=== PATIENT | female | born 1960 | race Caucasian/White ===

== ENCOUNTER 2017-11-18 08:03 | Day surgery (SDC) | payer BC ==
[2017-11-13 18:01] VITALS: BMI 40.7
[2017-11-18 08:31] VITALS: RESP 18; TEMP 98
[2017-11-18] MEDS: LACTATED RINGERS 1,000 ML IV SCH ×2 (08:43→08:46)
[2017-11-18] MEDS ORDERED: LIDOCAINE 1% 20 ML VIAL (10MG/ML) FOR IV START INTRADERMA ONE (08:44)
[2017-11-18] MEDS ORDERED: MIDAZOLAM 2 MG/2 ML VIAL ONE ×2 (08:51→09:38)
[2017-11-18] MEDS ORDERED: PROPOFOL 10 MG/ML 20 ML VIAL IV ONE ×2 (08:51→09:38)
[2017-11-18] MEDS ORDERED: fentaNYL (PF) 50 MCG/ML 2 ML AMP ONE (08:51)
[2017-11-18] MEDS ORDERED: LIDOCAINE 1% INJ 10MG/ML (20 ML MDV) ONE ×2 (08:51→09:38)
--- NOTE | 2017-11-18 09:36 | P.PCN ---
Date of Procedure: 11/18/17 Procedure(s) Performed: Procedure: Total colonoscopy. Preoperative diagnosis: Screening for neoplasia. Postoperative diagnosis: Diffuse diverticulosis with no evidence of acute diverticulitis, strictures, polyps or cancer. Preparation: HalfLytely prep. Sedation: Was provided by anesthesia. Brief clinical history: The patient is a 57-year-old female who is scheduled for this evaluation for screening for neoplasia. She has no abdominal complaints, bleeding or anemia or family history of colon cancer. Procedure: With the patient on her left lateral decubitus position and after informed consent and adequate sedation, the perianal area was inspected and it did not show any fissures or fistulas. There were no masses felt on digital rectal examination. The Olympus CFQ 160L video colonoscope was then inserted in the rectum in the usual fashion and advanced to the cecum. There was significant diverticular disease involving the full length of the bowel wall including the right side with no evidence of acute diverticulitis or strictures. The mucosa appeared healthy. No polyps or tumors were seen. I retroflexed the endoscope in the rectum before the endoscope was withdrawn. The patient tolerated. Plan: The patient was reassured. Discussed dietary measures. She will follow- up with you as planned and I recommended repeat exam in 10 years.
[2017-11-18 10:03] VITALS: BP 156/92; PULSE 63
== END 2017-11-18 10:53 | disposition home or self-care (01) ==
LOC: ORWHC2ENDO 08:03
DX: Z12.11 Encounter for screening for malignant neoplasm of colon (principal); K57.30 Diverticulosis of large intestine without perforation or abscess without bleeding; E07.9 Disorder of thyroid, unspecified; G43.909 Migraine, unspecified, not intractable, without status migrainosus
CPT/HCPCS: J2250; J2001; J3010; J2704; G0121

== ENCOUNTER → 2018-08-25 | Outpatient (CLI) | payer OTHER ==
--- NOTE | 2018-08-25 14:55 | XR ---
EXAMINATION TYPE: XR foot complete LT DATE OF EXAM: 08/25/2018 COMPARISON: 03/31/2015 HISTORY: Contusion left foot third metatarsal region history object fell on foot TECHNIQUE: Three-view left foot FINDINGS: Metatarsal tarsal alignment appears normal. No acute fractures are evident. Joint spaces ar e preserved. Plantar calcaneal heel spur is present. There is likely some soft tissue swelling over t he distal forefoot. Follow-up examination would be recommended 7-10 days from acute trauma for continued pain. IMPRESSION: 1. No acute fracture left foot. 2. Plantar calcaneal heel spur. 3. Soft tissue swelling distal dorsal foot
== END ==
LOC: RADXRMAIN 14:22
PROVIDERS: ATTEND Emergency Medicine
DX: M77.32 Calcaneal spur, left foot (principal); S90.32XA Contusion of left foot, initial encounter

== ENCOUNTER → 2018-09-07 | Outpatient (CLI) | payer OTHER ==
--- NOTE | 2018-09-07 12:41 | XR ---
EXAMINATION TYPE: XR foot complete LT DATE OF EXAM: 09/07/2018 COMPARISON: 08/25/2018 HISTORY: Pain TECHNIQUE: Three views are submitted. FINDINGS: The osseous structures are intact. There is no acute fracture or dislocation. Hypertrophic change and arthropathy first is cortical thickening involving the second through fourth metatarsals. Large p lantar calcaneal spur noted. IMPRESSION: 1. Cortical thickening involving the second through fourth metatarsals without evidence of overt frac ture line. Recommend bone scan to assess for occult fracture.
== END | disposition home or self-care (01) ==
LOC: RADXRMAIN 12:09
PROVIDERS: ATTEND Emergency Medicine
DX: M89.372 Hypertrophy of bone, left ankle and foot (principal)

== ENCOUNTER → 2018-09-18 | Outpatient (CLI) | payer OTHER ==
--- NOTE | 2018-09-21 03:00 | MR ---
EXAMINATION TYPE: MR foot LT wo con DATE OF EXAM: 09/18/2018 COMPARISON: None HISTORY: Left foot pain Standard multiplanar, multisequence MRI departmental protocol Multiplanar, multisequence images of the left foot were acquired. FINDINGS: The metatarsals are intact. Intertarsal joint spaces are fairly normal. There is soft tissu e swelling and skin thickening on the dorsum of the forefoot. MP joint spaces are fairly normal. I se e no bony destructive process. The medial and lateral flexor tendons of the ankle appear intact. Exte nsor tendons appear intact. Ankle mortise is anatomic. The collateral ligaments are intact. There is mild subcutaneous edema around the lower leg. Plantar fascia appears intact. No evidence of ligament or tendon tear. IMPRESSION: No evidence of a fracture. Forefoot soft tissue swelling. Mild subcutaneous edema.
== END | disposition home or self-care (01) ==
LOC: RADMRIMAIN 18:03
PROVIDERS: ATTEND Emergency Medicine
DX: M79.89 Other specified soft tissue disorders (principal); R60.0 Localized edema

== ENCOUNTER 2022-05-03 13:59 | Emergency (ER) | payer BC ==
[2022-05-03] MEDS ORDERED: SUMAtriptan succinate 6 MG/0.5 ML VIAL SQ STA (14:36)
--- NOTE | 2022-05-03 14:43 | ED ---
ENT HPI - General Chief complaint: ENT Stated complaint: nose bleed Time Seen by Provider: 05/03/22 14:27 Source: patient, family, RN notes reviewed, old records reviewed Mode of arrival: ambulatory Limitations: no limitations - History of Present Illness Initial comments: This is a 61-year-old female that presents to the emergency room with family complaining of intermittent epistaxis from the left since last night. Patient states that she's also developed a left-sided temporal pulsating headache. She does have a history of migraine headaches but this feels different and she has never had one on the left side. She states she does take Imitrex normally but did not take it today. She states that she is also having bleeding from the left tear duct. They did go to urgent care and recommended come to the emergency room. MD complaint: epistaxis, other (bleeding from left tear duct) -: days(s) (2) Location: nose Severity scale (1-10): 2 Consistency: intermittent Improves with: pressure Associated Symptoms: other (left temporal headache) - Related Data Home Medications Medication Instructions Recorded Confirmed Aspirin/Acetaminophen/Caffeine 3 tab PO DIRECTED PRN 11/13/17 02/02/20 [Excedrin Migraine Caplet] Levothyroxine Sodium [Synthroid] 100 mcg PO DAILY 11/13/17 02/02/20 Multivitamins, Thera [Multivitamin 1 tab PO DAILY 11/13/17 02/02/20 (formulary)] Vit C/E/Zn/Coppr/Lutein/Zeaxan 1 each PO DAILY 11/13/17 02/02/20 [Preservision Areds 2 Softgel] Calcium Carbonate/Vitamin D3 1 each PO TUFR 01/31/20 02/02/20 [Calcium 600-Vit D3 800 Caplet] Previous Rx's Medication Instructions Recorded Docusate [Colace] 100 mg PO BID #20 capsule 02/02/20 HYDROcodone/APAP 5-325MG [[place] 1 tab PO Q6HR PRN #10 tab 02/02/20 5-325] amLODIPine [Norvasc] 5 mg PO DAILY 30 Days #30 tab 05/03/22 Allergies Allergy/AdvReac Type Severity Reaction Status Date / Time No Known Allergies Allergy Verified 05/03/22 14:04 Review of Systems ROS Statement: Those systems with pertinent positive or pertinent negative responses have been documented in the HPI. ROS Other: All systems not noted in ROS Statement are negative. Past Medical History Past Medical History: Thyroid Disorder Additional Past Medical History / Comment(s): Hx Migraines. Varicose veins. Current gallstones. History of Any Multi-Drug Resistant Organisms: None Reported Past Surgical History: Hysterectomy, Orthopedic Surgery Additional Past Surgical History / Comment(s): LT KNEE SCOPE. NEUROFIBROMA EXC LT ANKLE X2, HAS SEVERED NERVE. RT THYROIDECTOMY. PARTIAL HYSTERECTOMY. COLONOSCOPY. Past Anesthesia/Blood Transfusion Reactions: Postoperative Nausea & Vomiting (PONV) Smoking Status: Never smoker Past Alcohol Use History: None Reported Past Drug Use History: None Reported - Past Family History Mother Family Medical History: No Reported History General Exam Limitations: no limitations General appearance: alert, in no apparent distress Head exam: Present: atraumatic Eye exam: Present: PERRL, EOMI, other (dried blood around left eye). Absent: scleral icterus, conjunctival injection, periorbital swelling Pupils: Present: normal accommodation ENT exam: Present: normal oropharynx, mucous membranes moist Expanded Mouth exam: Present: tongue normal, tongue elevation. Absent: drooling, trismus, muffled voice Throat exam: other (Bleeding from left nostril, clots expelled no further bleeding). negative: tonsillar erythema, tonsillar exudate, R peritonsillar mass, L peritonsillar mass Neck exam: Present: full ROM. Absent: tenderness, meningismus, lymphadenopathy Respiratory exam: Absent: respiratory distress, accessory muscle use Cardiovascular Exam: Present: regular rate GI/Abdominal exam: Present: soft. Absent: tenderness Neurological exam: Present: alert, oriented X3, normal gait Psychiatric exam: Present: normal affect, normal mood, anxious Skin exam: Present: warm, dry, normal color. Absent: cyanosis, diaphoretic, pallor Course Vital Signs 05/03/22 05/03/22 05/03/22 14:02 15:58 16:24 Temperature 98.5 F 98.2 F Pulse Rate 80 72 75 Respiratory 20 18 18 Rate Blood Pressure 169/107 181/113 164/99 O2 Sat by Pulse 99 98 98 Oximetry Medical Decision Making - Medical Decision Making Patient was able to blow and expelled large clots from left nostril. Bleeding is now controlled. No evidence of bleeding from the left tear duct. Labs are within normal limits. Patient has had no further bleeding. She was given her Imitrex for her headache with improvement. CT interpreted by me shows a maxillary sinus clots. Radiologist impression acute bilateral maxillary sinusitis with possible hemorrhage within the left maxillary sinus. Patient was advised of the results and explained that bleeding may recur. Strict instructions were provided for epistaxis. She was given a nasal clamp. Blood pressure in the emergency room with elevated. She was given hydralazine with improvement. I did discuss hypertensive management with the patient and she is agreeable to taking Norvasc 5 mg daily as previous records also indicate that she has been hypertensive. She states that she does have an appointment with her primary care doctor in June and was advised to discuss her blood pressure with him. She'll be monitoring her blood pressure at home with her own monitor. She is agreeable to this plan of care. Case discussed with Dr. Lay - Lab Data Result diagrams: 05/03/22 14:40 05/03/22 14:40 Lab Results 05/03/22 05/03/22 05/03/22 Range/Units 14:40 14:40 14:40 WBC 6.7 (3.8-10.6) k/uL RBC 4.72 (3.80-5.40) m/uL Hgb 13.7 (11.4-16.0) gm/dL Hct 41.0 (34.0-46.0) % MCV 86.8 (80.0-100.0) fL MCH 29.0 (25.0-35.0) pg MCHC 33.4 (31.0-37.0) g/dL RDW 13.1 (11.5-15.5) % Plt Count 300 (150-450) k/uL MPV 8.0 Neutrophils % 61 % Lymphocytes % 27 % Monocytes % 5 % Eosinophils % 4 % Basophils % 1 % Neutrophils # 4.1 (1.3-7.7) k/uL Lymphocytes # 1.8 (1.0-4.8) k/uL Monocytes # 0.3 (0-1.0) k/uL Eosinophils # 0.3 (0-0.7) k/uL Basophils # 0.1 (0-0.2) k/uL PT 10.1 (9.0-12.0) sec INR 0.9 (<1.2) Sodium 139 (137-145) mmol/L Potassium 3.7 (3.5-5.1) mmol/L Chloride 109 H (98-107) mmol/L Carbon Dioxide 25 (22-30) mmol/L Anion Gap 5 mmol/L BUN 10 (7-17) mg/dL Creatinine 0.60 (0.52-1.04) mg/dL Est GFR (CKD-EPI)AfAm >90 (>60 ml/min/1.73 sqM) Est GFR (CKD-EPI)NonAf >90 (>60 ml/min/1.73 sqM) Glucose 102 H (74-99) mg/dL Calcium 8.6 (8.4-10.2) mg/dL Disposition Clinical Impression: Epistaxis Disposition: HOME SELF-CARE Condition: Good Instructions (If sedation given, give patient instructions): Nosebleed (ED) Additional Instructions: If rebleeding occurs blow your nose to expel any clots and then hold pressure for 15 minutes. Reassess. If there is persistent bleeding return to the emergency room. You can use Afrin nasal spray as directed. You can also place a thin layer of Neosporin or Vaseline inside your nose for moisture. Follow-up with ENT as needed. Prescriptions: amLODIPine [Norvasc] 5 mg PO DAILY 30 Days #30 tab Is patient prescribed a controlled substance at d/c from ED?: No Referrals: Alireza Allison DO [Primary Care Provider] - 1-2 days Adolfo Askew MD [STAFF PHYSICIAN] - 1-2 days Time of Disposition: 15:37
[2022-05-03] MEDS ORDERED: SUMAtriptan succinate 25 MG TAB PO STA (14:46)
[2022-05-03 14:54] LABS: Basophils # (A) 0.1 k/uL (0-0.2); Basophils % (A) 1 %; Eosinophils # (A) 0.3 k/uL (0-0.7); Eosinophils % (A) 4 %; HGB 13.7 gm/dL (11.4-16.0); Lymphocytes # (A) 1.8 k/uL (1.0-4.8); Lymphocytes % (A) 27 %; MCHC 33.4 g/dL (31.0-37.0); MCV 86.8 fL (80.0-100.0); Monocytes # (A) 0.3 k/uL (0-1.0); Monocytes % (A) 5 %; Neutrophils # (A) 4.1 k/uL (1.3-7.7); Neutrophils % (A) 61 %; Platelet Count 300 k/uL (150-450); RBC 4.72 m/uL (3.80-5.40); RDW 13.1 % (11.5-15.5); WBC 6.7 k/uL (3.8-10.6)
[2022-05-03 15:05] LABS: INR 0.9 (<1.2); Prothrombin Time 10.1 sec (9.0-12.0)
[2022-05-03 15:10] LABS: African American GFR (CKD) >90 (>60 ml/min/1.73 sqM); Anion Gap 5 mmol/L; Blood Urea Nitrogen 10 mg/dL (7-17); Calcium 8.6 mg/dL (8.4-10.2); Carbon Dioxide 25 mmol/L (22-30); Chloride 109 mmol/L (98-107); Glucose 102 mg/dL (74-99); Non-African American GFR(CKD) >90 (>60 ml/min/1.73 sqM); Potassium 3.7 mmol/L (3.5-5.1); Sodium 139 mmol/L (137-145)
--- NOTE | 2022-05-03 15:18 | CT ---
EXAMINATION TYPE: CT brain wo con DATE OF EXAM: 05/03/2022 COMPARISON: None HISTORY: Headache and nose bleed. CT DLP: 1252.4 mGycm Automated exposure control for dose reduction was used. FINDINGS: The ventricles, basal cisterns and sulci over the convexities are within normal limits and there is n o mass effect or shift of the midline structures. No abnormal density is seen throughout the brain parenchyma and there is no acute intra or extra-axia l hemorrhage. The posterior fossa including the brainstem, fourth ventricle and cerebellar pontine angles appear gr ossly normal. The. Intraorbital contents appear normal and symmetric. There are air-fluid levels in the maxillary sinuses bilaterally and there is a fluid /fluid level in the left maxillary sinus with high density and low density fluid which could indicate hemorrhage or i nspissated mucus/fluid. The frontal sinuses are hypoplastic. The sphenoid sinus and mastoid air cells are well aerated IMPRESSION: Acute bilateral maxillary sinusitis with possible hemorrhage within the left maxillary sinus, see marcela larson. IMPRESSION:
[2022-05-03] MEDS ORDERED: OXYMETAZOLINE 0.05% NASL SPRAY 1 SPRAY BOTTLE NASAL STA (15:35)
[2022-05-03] MEDS ORDERED: hydrALAZINE HCL 20 MG/ML 1 ML VIAL IVP STA (15:57)
[2022-05-03 15:58] VITALS: RESP 18
[2022-05-03 16:31] VITALS: BP 164/99; PULSE 75; TEMP 98.2
== END 2022-05-03 16:32 | disposition home or self-care (01) ==
LOC: EC 13:59
DX: R04.0 Epistaxis (principal); E07.9 Disorder of thyroid, unspecified; Z79.82 Long term (current) use of aspirin; Z79.890 Hormone replacement therapy
CPT/HCPCS: 36415; 80048; 85025; 85610; 70450; 99284; 96374; J0360

== ENCOUNTER 2023-06-24 10:28 | Day surgery (SDC) | payer BC ==
[~2023-06-24 10:28] MED LIST: LIDOCAINE 1% (10MG/ML) FOR IV START INTRADERMA PRN; ONDANSETRON 4 MG/2 ML VIAL IVP PRN
[2023-06-24] MEDS: LACTATED RINGERS 1,000 ML IV SCH (10:55)
[2023-06-24] MEDS: ONDANSETRON 4 MG/2 ML VIAL IVP ONE (10:56)
[2023-06-24 11:06] VITALS: RESP 14; TEMP 97.1
[2023-06-24] MEDS ORDERED: PROPOFOL 10 MG/ML 20 ML VIAL IV ONE (11:35)
[2023-06-24] MEDS ORDERED: LIDOCAINE 1% INJ 10MG/ML (20 ML MDV) ONE (11:35)
--- NOTE | 2023-06-24 11:53 | P.PCN ---
Date of Procedure: 06/24/23 Procedure(s) Performed: BRIEF HISTORY: Patient is a 62-year-old pleasant white female scheduled for an elective colonoscopy as a part of evaluation of recent episode of acute sigmoid diverticulitis 2 months ago for which she was treated with antibiotics and symptoms resolved. PROCEDURE PERFORMED: Colonoscopy. PREOPERATIVE DIAGNOSIS: Recent episode of acute sigmoid diverticulitis. IV sedation per Anesthesia. PROCEDURE: After informed consent was obtained, the patient, was brought into the endoscopy unit. IV sedation was administered by Anesthesia under continuous monitoring. Digital rectal examination was normal. Initially the Olympus CF-160 flexible video colonoscope was then inserted in the rectum, gradually advanced into the cecum without any difficulty. Careful examination was performed as the scope was gradually being withdrawn. Ileocecal valve and the appendiceal orifice were visualized and appeared normal. Prep was excellent. Mucosa of the cecum, ascending colon, transverse colon, descending colon, sigmoid colon, and rectum appeared normal. Scattered sigmoid diverticulosis. Retroflexion was performed in the rectum and no lesions were seen. The patient tolerated the procedure well. IMPRESSION: Normal-appearing colon from rectum to cecum no evidence of colorectal neoplasia . Scattered sigmoid diverticulosis. RECOMMENDATIONS: Findings of this examination were discussed with the patient as well as her family. She was advised to be a high-fiber diet. Recommend repe at screening colonoscopy in 10 years..
[2023-06-24 12:06] VITALS: BP 137/82; PULSE 75
== END 2023-06-24 12:46 | disposition home or self-care (01) ==
LOC: ORWHC2ENDO 10:28
PROVIDERS: ATTEND Internal Medicine Gastroenterology
DX: K57.30 Diverticulosis of large intestine without perforation or abscess without bleeding (principal); I10 Essential (primary) hypertension; E03.9 Hypothyroidism, unspecified; M06.9 Rheumatoid arthritis, unspecified; Z79.890 Hormone replacement therapy; Z79.899 Other long term (current) drug therapy; Z90.49 Acquired absence of other specified parts of digestive tract
CPT/HCPCS: 45378; J2405; J2001; J2704

== ENCOUNTER → 2024-06-01 | Outpatient (CLI) | payer BC ==
--- NOTE | 2024-06-01 10:01 | MR ---
EXAMINATION TYPE: MR knee RT wo con DATE OF EXAM: 06/01/2024 COMPARISON: Outside right knee x-ray May 28, 2024 HISTORY: Right knee medial and posterior pain with swelling since April 28, no trauma. TECHNIQUE: Multiplanar, multisequence images of the knee is performed without IV contrast. FINDINGS: MEDIAL MENISCUS: Artifact through the posterior horn on sagittal images does not reproduce on coronal images. LATERAL MENISCUS: Anterior and posterior horns are intact without tear. CRUCIATE LIGAMENTS: The anterior and posterior cruciate ligaments are intact and unremarkable. COLLATERAL LIGAMENTS: The medial collateral ligament and lateral collateral ligament complex are inta ct and unremarkable. EXTENSOR MECHANISM: Visualized quadriceps and patellar tendons are intact. EFFUSION: Large size suprapatellar joint effusion. POPLITEAL CYST: No popliteal/hsieh cyst. TRICOMPARTMENT SPACES: Mild to moderate tricompartment joint space loss and mild spurring. CARTILAGE: Some cartilaginous loss medial tibiofemoral compartment. Mild fissuring posterior patella sagittal image 20 consistent with chondromalacia patella. BONE MARROW SIGNAL: Tiny focus of increased T2 signal posterior patellar pole at site of cartilaginou s loss sagittal image 20. OTHER: Moderate superficial infrapatellar subcutaneous edema. Prominent vessel in the medial subcutan eous fat likely reflects varicose vein. IMPRESSION: 1. No meniscal or ligamentous tear is seen. 2. Large-size suprapatellar joint effusion. 3. Tricompartment degenerative changes fairly moderate patellofemoral and medial tibiofemoral compart ment as detailed above. [facility], , 06/01/2024 9:58 AM
== END | disposition home or self-care (01) ==
LOC: RADMRIMAIN 08:06
PROVIDERS: ATTEND Orthopaedic Surgery
DX: M17.11 Unilateral primary osteoarthritis, right knee (principal)

== ENCOUNTER → 2024-07-05 | Outpatient (CLI) | payer BC ==
[2024-07-05 15:03] LABS: Basophils # (A) 0.12 X 10*3/uL (0.00-0.10); Basophils % (A) 1.1 %; Eosinophils # (A) 0.38 X 10*3/uL (0.04-0.35); Eosinophils % (A) 3.5 %; HCT 44.7 % (37.2-46.3); HGB 14.6 g/dL (12.0-15.0); Lymphocytes # (A) 2.57 X 10*3/uL (0.90-5.00); Lymphocytes % (A) 23.7 %; MCH 28.7 pg (27.0-32.0); MCHC 32.7 g/dL (32.0-37.0); MCV 87.8 FL (80.0-97.0); Mean Platelet Volume 9.9 FL (9.5-12.2); Monocytes # (A) 0.75 X 10*3/uL (0.20-1.00); Monocytes % (A) 6.9 %; NRBC Per 100 WBC 0 X 10*3/uL (0.00-0.01); Neutrophils # (A) 6.95 X 10*3/uL (1.80-7.70); Neutrophils % (A) 64.2 %; Platelet Count 324 X 10*3/uL (140-440); RBC 5.09 X 10*6/uL (4.10-5.20); RDW 13.3 % (11.5-14.5); WBC 10.84 X 10*3/uL (4.50-10.00)
[2024-07-05 15:49] LABS: BUN/Creat Ratio 16.38 Ratio (12.00-20.00); Blood Urea Nitrogen 13.1 mg/dL (9.0-27.0); Calcium 9.8 mg/dL (8.7-10.3); Chloride 104 mmol/L (96-109); Glucose 112 mg/dL (70-110); Potassium 4.1 mmol/L (3.5-5.5); Sodium 140 mmol/L (135-145)
== END | disposition home or self-care (01) ==
LOC: LABPAT 12:11
PROVIDERS: ATTEND Orthopaedic Surgery
DX: Z01.818 Encounter for other preprocedural examination (principal); M23.91 Unspecified internal derangement of right knee
CPT/HCPCS: 36415; 80048; 85025; 93005

== ENCOUNTER 2024-07-23 06:12 | Day surgery (SDC) | payer BC ==
--- NOTE | 2024-07-22 09:46 | P.HPOR ---
History of Present Illness H&P Date: 07/22/24 Chief Complaint: Right knee pain The patient is a 63-year-old female who presents with progressive right knee pain for the past several months. She notes anterior medial pain with weightbearing activities. She has intermittent buckling. She has tried medications in addition to an injection without much relief. She notes it bothers her daily and limits her normal function and activities. Review of Systems Per HPI Past Medical History Past Medical History: Hypertension, Rheumatoid Arthritis (RA), Thyroid Disorder Additional Past Medical History / Comment(s): Hx Migraines. Varicose veins. IBS History of Any Multi-Drug Resistant Organisms: None Reported Past Surgical History: Cholecystectomy, Hysterectomy, Orthopedic Surgery Additional Past Surgical History / Comment(s): LT KNEE SCOPE. NEUROFIBROMA EXC LT ANKLE X2, HAS SEVERED NERVE. RT THYROIDECTOMY. PARTIAL HYSTERECTOMY. COLONOSCOPY. Past Anesthesia/Blood Transfusion Reactions: Postoperative Nausea & Vomiting (PONV) Additional Past Anesthesia/Blood Transfusion Reaction / Comment(s): severe PONV Smoking Status: Never smoker - Past Family History Mother Family Medical History: No Reported History Medications and Allergies Home Medications Medication Instructions Recorded Confirmed Type Levothyroxine Sodium [Synthroid] 100 mcg PO DAILY 11/13/17 07/19/24 History Multivitamins, Thera [Multivitamin 1 tab PO DAILY 11/13/17 07/19/24 History (formulary)] Vit C/E/Zn/Coppr/Lutein/Zeaxan 1 each PO DAILY 11/13/17 07/19/24 History [Preservision Areds 2 Softgel] amLODIPine [Norvasc] 5 mg PO DAILY 30 Days #30 tab 05/03/22 07/19/24 Rx Dicyclomine HCl 10 mg PO TID PRN 06/20/23 07/19/24 History Cantril-3/Dha/Epa/Fish Oil [Fish Oil 1 each PO DAILY 06/20/23 07/19/24 History 1,000 mg Softgel] Turmeric Root Extract [Turmeric] 500 mg PO DAILY 06/20/23 07/19/24 History Magnesium 250 mg PO Q2D 07/20/24 07/20/24 History Allergies Allergy/AdvReac Type Severity Reaction Status Date / Time No Known Allergies Allergy Verified 07/19/24 14:18 Physical Examination - Knee right Appearance: effusion Effusion grade: grade 2 Tenderness with palpation: anterior, medial Pain: throughout ROM Gait: limping ROM: extension: -10 degrees ROM: flexion: 85 degrees Crepitus with motion: Yes Strength: extension: 5/5 Strength: flexion: 5/5 Meniscal tests: medial meniscal tests: positive, medial joint line pain: positive Results The patient is a well-developed well-nourished female approximately 5 foot 4, 265 pounds of endomorphic habitus. HEENT exam is nonfocal, neck is supple. She has painless passive motion of her right hip. Straight leg raise is negative. She is tender about the medial joint line of the right knee. Collaterals are stable, Oumar's negative, Jordi's elicits medial pain. Her distal neurovascular exam appears intact in the right lower extremity. - Diagnostic results Knee MRI: image reviewed (MRI of the right knee shows a large effusion along with irregularities involving the chondral surface of the medial femoral condyle. There is increased signal involving the posterior horn of the medial meniscus.) Assessment and Plan Assessment: Right knee internal derangement/possible medial meniscal tear versus medial femoral condyle chondral injury Plan: I talked to the patient at length regarding her condition along with treatment options. At this point she having persistent pain and mechanical symptoms despite conservative measures. After a thorough discussion she opts to proceed with surgery. We will plan to proceed with right knee arthroscopy with possible partial medial meniscectomy in addition to medial femoral chondral ectomy. Risks and benefits were discussed at length in layman's terms. We will likely perform that as an outpatient procedure.
[~2024-07-23 06:12] MED LIST changes: -LIDOCAINE 1% (10MG/ML) FOR IV START INTRADERMA PRN; -ONDANSETRON 4 MG/2 ML VIAL IVP PRN; +SCOPOLAMINE 1 MG/72 HR PATCH TRANSDERM ONE
[2024-07-23] MEDS: ONDANSETRON 4 MG/2 ML VIAL IVP ONE (06:59)
[2024-07-23] MEDS: DEXAMETHASONE SOD PHOSPHATE 4 MG/ML 1 ML VIAL IV ONE (07:00)
[2024-07-23] MEDS ORDERED: MIDAZOLAM 2 MG/2 ML VIAL IV PRN (07:00)
[2024-07-23] MEDS: LACTATED RINGERS 1,000 ML IV SCH (07:00)
[2024-07-23] MEDS: FAMOTIDINE 20 MG/2 ML VIAL IV STA (07:01)
[2024-07-23 07:10] VITALS: RESP 16
[2024-07-23] MEDS: IV FLUID CONTINUATION 1,000 ML IV ONE (07:11)
[2024-07-23] MEDS ORDERED: LIDOCAINE 1% INJ 10MG/ML (20 ML MDV) ONE (07:31)
[2024-07-23] MEDS ORDERED: MIDAZOLAM 2 MG/2 ML VIAL ONE (07:31)
[2024-07-23] MEDS ORDERED: HYDROmorphone (PF) 1 MG/ML ONE (07:31)
[2024-07-23] MEDS ORDERED: SUCCINYLCHOLINE CHLORIDE 200 MG/10 ML VIAL IV ONE (07:31)
[2024-07-23] MEDS ORDERED: fentaNYL (PF) 50 MCG/ML 2 ML AMP ONE (07:31)
[2024-07-23] MEDS ORDERED: PROPOFOL 10 MG/ML 20 ML VIAL IV ONE (07:31)
[2024-07-23] MEDS ORDERED: DEXAMETHASONE SOD PHOSPHATE 10 MG/ML 1 ML VIAL ONE (07:31)
[2024-07-23] MEDS ORDERED: KETOROLAC 15 MG/ML 1 ML VIAL ONE (07:31)
[2024-07-23] MEDS: EPINEPHrine (PF) 1 ML in SODIUM CHLORIDE 0.9% IRRIGATIO 3,000 ML IRRIGATION ONE ×4 (07:41→07:54)
--- NOTE | 2024-07-23 08:29 | P.OP ---
Date of Procedure: 07/23/24 Preoperative Diagnosis: Right knee internal derangement Postoperative Diagnosis: Right knee posterior medial meniscal tear/grade 3 chondral injury distal medial femoral condyle/posterior lateral meniscal tear Procedure(s) Performed: Right knee arthroscopic partial medial meniscectomy/medial femoral chondral ectomy/microfracture medial femoral condyle/partial lateral meniscectomy Anesthesia: BANG Surgeon: Alexandre Velasquez Estimated Blood Loss (ml): 10 Pathology: none sent Condition: stable Disposition: PACU Indications for Procedure: The patient is a 63-year-old female who presents with progressive right knee pain and mechanical symptoms despite conservative measures. A discussion of the risks and benefits of operative intervention versus continued conservative measures was made with the patient. She opted to proceed with surgery. Operative risks include infection, neurovascular injury, development of blood clots, possible incomplete resolution of symptoms, possible worsening of symptoms and need for subsequent procedures was discussed. Informed consent was obtained. Operative Findings: As below Description of Procedure: The patient was brought to the operating room, and after induction of general anesthesia examined the right knee. Collaterals were stable, Oumar was negative, and posterior drawer was negative. The right lower extremity was prepped and draped in a normal fashion. A superior lateral portal was made through a 3 mm skin incision superior and lateral to the patella. This was used for outflow. A lateral portal was made through a 5 mm vertical skin incision lateral to the patella tendon above the joint line. Diagnostic arthroscopy was performed. On inspection of the medial compartment, an oblique tear involving the posterior medial meniscus in the white-white junction was noted. This was debrided back to stable base with straight baskets and a motorized shaver. A grade 3 chondral injury was noted involving the distal medial aspect of the medial femoral condyle measuring 6 x 8 mm. There was a loose chondral flap. This is debrided back to stable base with a motorized shaver. Microfracture was performed with a power pick breaching the subchondral surface down to the bone marrow elements. On inspection of the notch, the anterior cruciate ligament appeared to be intact. On inspection of the lateral compartment, a complex undersurface tear involving the posterior lateral meniscus was noted. This is debrided with a motorized shaver. The remaining meniscus was stable and intact. On inspection of the patellofemoral articulation, there was chondromalacia however no loose chondral fragments. The gutters were clear debris. The knee was then thoroughly irrigated. The portals were closed with Steri-Strips. A sterile dressing was applied in addition to a compression stocking. The patient was awoken from general anesthesia and transferred to recovery room in good condition. Blood loss was estimated at 10 mL. No complications were incurred.
[2024-07-23 08:44] VITALS: TEMP 97
[2024-07-23] MEDS: HYDROmorphone 0.5 MG/0.5 ML SYRINGE IVP PRN (08:55)
[2024-07-23] MEDS: SODIUM CHLORIDE 0.9% 1,000 ML IV ONE (09:15)
[2024-07-23] MEDS: HYDROcodone/APAP 5-325MG 1 EACH TAB PO STA (09:58)
[2024-07-23 10:06] VITALS: BP 126/77; PULSE 70
== END 2024-07-23 11:06 | disposition home or self-care (01) ==
LOC: OR 06:12
PROVIDERS: ATTEND Orthopaedic Surgery
DX: S83.241A Other tear of medial meniscus, current injury, right knee, initial encounter (principal); S83.281A Other tear of lateral meniscus, current injury, right knee, initial encounter; M06.9 Rheumatoid arthritis, unspecified; K58.9 Irritable bowel syndrome, unspecified; E07.9 Disorder of thyroid, unspecified; I10 Essential (primary) hypertension; E66.9 Obesity, unspecified; G43.909 Migraine, unspecified, not intractable, without status migrainosus; Z90.49 Acquired absence of other specified parts of digestive tract; Z90.710 Acquired absence of both cervix and uterus; Z86.018 Personal history of other benign neoplasm; Z79.890 Hormone replacement therapy; Z79.899 Other long term (current) drug therapy; X58.XXXA Exposure to other specified factors, initial encounter
CPT/HCPCS: 29880; 29879; J2250; J0330; J1100 ×2; J0690; J2405; J0171; J2003; J3010; J3490; J1171 ×2; J1885; J2704